=== PATIENT | female | born 1965 | race American Indian/Alaskan Native ===

== ENCOUNTER 2017-10-20 10:52 | Emergency (ER) | payer SELFPAY ==
[2017-10-20 11:00] VITALS: RESP 18
--- NOTE | 2017-10-20 11:42 | C.PDOC ---
History Of Present Illness <Wilmer Bruner M - Last Filed: 10/20/17 13:04> <Betty Tracy - Last Filed: 10/20/17 13:21> 51 year old female with no past medical history presents to the ER for pain behind the left ear since Friday10/15/17. She states the pain radiates behind and in front of her head. Patient [place] [facility] [place] per patient was given IVF and percocet. Patient states the percocet relieved her pain and so she did not get a head CT at that time and went home. Patient states since being home the pain has returned and she has been taking Tylenol and Motrin which brings the pain down from a 9 to a 5/10. Patient states she has felt lightheaded and for which she then goes to sleep and the symptoms goes away. Patient denies dizziness, blurry vision or change in vision, syncope, nausea, vomiting, decrease hearing or discharge from her ears. (Betty Tracy) <Wilmer Bruner M - Last Filed: 10/20/17 13:04> <Betty Tracy - Last Filed: 10/20/17 13:21> Chief Complaint (Nursing): Headache Past Medical History Family History: States: Unknown Family Hx - Social History Hx Alcohol Use: No Hx Substance Use: No <Betty Tracy - Last Filed: 10/20/17 13:21> Vital Signs: Last Vital Signs Temp 98 F 10/20/17 13:19 Pulse 76 10/20/17 13:19 Resp 18 10/20/17 13:19 BP 126/73 10/20/17 13:19 Pulse Ox 98 10/20/17 13:19 Review Of Systems Eyes: Negative for: Pain, Vision Change ENT: Positive for: Other (pain behind left ear ). Negative for: Ear Pain, Ear Discharge Cardiovascular: Negative for: Chest Pain, Palpitations Gastrointestinal: Negative for: Nausea, Vomiting, Abdominal Pain Musculoskeletal: Negative for: Neck Pain Neurological: Positive for: Headache. Negative for: Weakness, Numbness, Other <Betty Tracy - Last Filed: 10/20/17 13:21> Physical Exam - Physical Exam Appears: Non-toxic, No Acute Distress Skin: Normal Color Head: Atraumatic, Normacephalic, Tenderness (behind left ear tenderness, occiput tenderness, mastoid tenderness ) Eye(s): bilateral: Normal Inspection, PERRL, EOMI Lymphatic: No Other (cervical lymphadenopathy: negative ) Cardiovascular: Rhythm Regular Respiratory: Normal Breath Sounds Neurological/Psych: Oriented x3, Normal Speech, Normal Cognition, Normal Cranial Nerves Gait: Steady <Betty Tracy - Last Filed: 10/20/17 13:21> ED Course And Treatment O2 Sat by Pulse Oximetry: 100 <Betty Tracy - Last Filed: 10/20/17 13:21> Medical Decision Making: patient with tenderness to left mastoid region, no gross swelling, tm is normal on left, no scalp lesion, oropharynx is clear. will proph. treat with keflex and pain medication with ent follow up. (Wilmer Bruner) Disposition Counseled Patient/Family Regarding: Studies Performed, Diagnosis, Need For Followup, Rx Given - Disposition Disposition Time: 13:08 <Wilmer Bruner - Last Filed: 10/20/17 13:04> Discussed With Dr.: Wilmer Bruner Doctor Will See Patient In The: ED <Betty Tracy - Last Filed: 10/20/17 13:21> - Disposition Referrals: Dhruv Weaver MD [Staff Provider] - Disposition: HOME/ ROUTINE Additional Instructions: follow up with ent - Dr. 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 / has examined the patient and agrees with the treatment plan. <Betty Tracy - Last Filed: 10/20/17 13:21>
--- NOTE | 2017-10-20 12:52 | CT ---
Date of service: 10/20/2017 PROCEDURE: CT OF THE TEMPORAL BONES WITHOUT CONTRAST HISTORY: Tenderness behind left ear COMPARISON: Comparison made with concurrent CT scan brain TECHNIQUE: High resolution axial images of the temporal bones were obtained. Coronal and sagittal reformats were generated. Radiation dose: Total exam DLP = 657.0 mGy-cm. This CT exam was performed using one or more of the following dose reduction techniques: Automated exposure control, adjustment of the mA and/or kV according to patient size, and/or use of iterative reconstruction technique. FINDINGS: RIGHT TEMPORAL BONE: RIGHT MIDDLE EAR: Normal. RIGHT INNER EAR: Cochlea: Normal. Semicircular canals: Normal. RIGHT MASTOID AIR CELLS: Normal. RIGHT INTERNAL AUDITORY CANAL: Normal. RIGHT EXTERNAL AUDITORY CANAL: Normal. RIGHT VESTIBULAR AND COCHLEAR AQUEDUCT: Normal. OTHER FINDINGS: None. LEFT TEMPORAL BONE: LEFT MIDDLE EAR: Normal. LEFT INNER EAR: Cochlea: Normal. Semicircular canals: Normal. LEFT MASTOID AIR CELLS: Normal. LEFT INTERNAL AUDITORY CANAL: Normal. LEFT EXTERNAL AUDITORY CANAL: Normal. LEFT VESTIBULAR AND COCHLEAR AQUEDUCT: Normal. OTHER FINDINGS: No obvious soft tissue masses, collections or subcutaneous emphysema seen. IMPRESSION: Unremarkable non contrast enhanced CT of the temporal bones.
--- NOTE | 2017-10-20 12:59 | CT ---
Date of service: 10/20/2017 PROCEDURE: CT HEAD WITHOUT CONTRAST. HISTORY: Tenderness behind left ear COMPARISON: Correlation made with concurrent CT scan of the temporal bones/ sinuses. TECHNIQUE: Axial computed tomography images were obtained through the head/brain without intravenous contrast. Radiation dose: Total exam DLP = 878.28 mGy-cm. This CT exam was performed using one or more of the following dose reduction techniques: Automated exposure control, adjustment of the mA and/or kV according to patient size, and/or use of iterative reconstruction technique. . FINDINGS: HEMORRHAGE: No acute parenchymal, subarachnoid or extra-axial hemorrhage. BRAIN: No evidence of large acute infarct. No obvious parenchymal nor extra-axial masses or collections. Note made of exuberant dural calcifications within the anterior margin of the interhemispheric fissure. Ventricular and sulcal size are within range of normal for this patient's stated age. VENTRICLES: No obstructive hydrocephalus. CALVARIUM: Calvarium appears intact. . Slight exuberant appearance of the inner table of the frontal calvarium suggests early hyperostosis frontalis interna PARANASAL SINUSES: Minimal mucosal thickening seen within inferior margins of frontal sinus as well as a few ethmoid air cells. MASTOID AIR CELLS: Mastoid air complexes and middle ear canals well-developed and currently well-aerated. There are no fluid levels. No obvious soft tissue masses, collections or subcutaneous emphysema seen dorsal to the left near. OTHER FINDINGS: None. IMPRESSION: No acute intracranial hemorrhage. Normal-appearing right mastoid air complexes.
[2017-10-20 13:20] VITALS: BP 126/73; PULSE 76; TEMP 98
[2017-10-20 13:21] VITALS: O2SAT 100
== END 2017-10-20 13:20 | disposition home or self-care (01) ==
LOC: C.ER 10:52
DX: H92.02 Otalgia, left ear (principal)